=== PATIENT | male | born 1980 | race African-American/Black ===

== ENCOUNTER 2023-01-03 00:39 | Emergency (ER) | payer MEDICAID ==
[~2023-01-03] VITALS: Ht 177.8 cm; Wt 69.0 kg
[~2023-01-03 00:39] MED LIST: BICT1TAB PO
[2023-01-03 00:47] VITALS: BP 102/68; PULSE 79; RESP 16; TEMP 97.9; O2SAT 97
== END 2023-01-03 03:17 | disposition left against medical advice (07) ==
LOC: ER 00:39
DX: Z53.21 Procedure and treatment not carried out due to patient leaving prior to being seen by health care provider (principal)
CPT/HCPCS: 99281; Z7610

== ENCOUNTER 2023-01-03 19:08 | Inpatient (IN) | payer MEDICAID ==
[~2023-01-03] VITALS: Ht 170.7 cm; Wt 59.0 kg
[2023-01-03 19:18] VITALS: O2SAT 100
[2023-01-03] MEDS ORDERED: SODIUM CHLORIDE 0.9% 1,000 ML IV ONE (21:30)
[2023-01-03 21:44] LABS: CHLORIDE 105 mEq/L (98-107)
[2023-01-03 21:53] LABS: CREATINE KINASE 346 IU/L (39-308); ETHANOL BLOOD < 10 mg/dL (-10)
[2023-01-03 21:53] LABS: HEMATOCRIT. 26.7 % (42.0-52.0); HEMOGLOBIN. 8.7 g/dL (14.0-18.0); MEAN CORPUSCULAR HEMOGLOBIN 25.9 pg (28.0-32.0); MEAN CORPUSCULAR VOLUME 79.4 fL (80.0-94.0); MEAN PLATELET VOLUME 6.7 fl (7.4-10.4); PLATELET 500 x1000/uL (130-400); RED BLOOD CELL COUNT 3.36 mill/uL (4.7-6.1); RED CELL DISTRIBUTION WIDTH 16.5 % (11.6-14.6)
[2023-01-03 22:00] LABS: CARBAMAZEPINE < 0.5 ug/mL (4-12)
[2023-01-03 22:03] LABS: INR 1.1
[2023-01-03 22:52] LABS: PLATELET ESTIMATE INCREASED
[2023-01-03] MEDS ORDERED: PIPERACILLIN/TAZOBACTAM 3.375GM/50ML PREMIX IV ONE (23:00)
[2023-01-03] MEDS ORDERED: LEVETIRACETAM 500MG PREMIX 100 ML IV ONE (23:00)
[2023-01-03] MEDS ORDERED: VANCOMYCIN 1G PREMIX 200 ML IV SCH (23:00)
[2023-01-03] MEDS ORDERED: PIPERACILLIN/TAZ 3.375G PREMIX 50 ML IV NR (23:15)
[2023-01-04] VITALS (26 sets, daily range): BP systolic 79–130; BP diastolic 46–77; PULSE 85–115; RESP 13–128; TEMP 97.4–98.1
[2023-01-04 00:25] LABS: *AMPHETAMINES SCREEN URINE PRESUMTIVE POSITIVE (NEGATIVE); *BARBITURATES SCREEN URINE NEGATIVE (NEGATIVE); *BENZODIAZEPINES SCREEN URINE NEGATIVE (NEGATIVE); *COCAINE SCREEN URINE NEGATIVE (NEGATIVE); CANNABINOID URINE SCREEN PRESUMTIVE POSITIVE (NEGATIVE); METHADONE URINE SCREEN NEGATIVE (NEGATIVE); OPIATES URINE SCREEN NEGATIVE (NEGATIVE); PHENCYCLIDINE URINE SCREEN NEGATIVE (NEGATIVE)
[2023-01-04 00:31] LABS: CLARITY URINE TURBID (CLEAR); COLOR URINE DARK YELLOW (YELLOW); KETONES URINE 1+ (NEGATIVE); LEUKOCYTE ESTERASE URINE 3+ (NEGATIVE); NITRITE URINE NEGATIVE (NEGATIVE); OCCULT BLOOD URINE 3+ (NEGATIVE); PH URINE 5.5 (4.5-8.0); PROTEIN URINE 2+ (NEGATIVE); SPECIFIC GRAVITY URINE 1.019 (1.005-1.030)
[2023-01-04] MEDS ORDERED: SODIUM CHLORIDE 0.9% 1,000 ML IV ONE (03:15)
[2023-01-04] MEDS ORDERED: LORAZEPAM 2MG/ML CPJ IV ONE ×2 (03:30)
[2023-01-04] MEDS ORDERED: IOHEXOL-350 100 ML BOTTLE ONE (04:33)
[2023-01-04] MEDS ORDERED: ONDANSETRON HCL 4MG/2ML INJ IV PRN (09:00)
[2023-01-04] MEDS ORDERED: IPRATROPIUM/ALBUTEROL 0.5-3(2.5)MG/3ML NEB HHN PRN (09:00)
[2023-01-04] MEDS ORDERED: CEFTRIAXONE 1GM PREMIX 50 ML IV SCH (09:00)
[2023-01-04] MEDS ORDERED: ACETAMINOPHEN 325MG TABLET PO PRN ×2 (09:00)
[2023-01-04] MEDS ORDERED: DOCUSATE SODIUM 100MG CAPSULE PO PRN (09:00)
[2023-01-04] MEDS ORDERED: CLONIDINE 0.1MG TABLET PO PRN (09:00)
[2023-01-04] MEDS ORDERED: SODIUM BICARBONATE 8.4% 1 MEQ/ML 50ML SYR IV NR (10:15)
[2023-01-04] MEDS: LEVETIRACETAM 500MG PREMIX 100 ML IV SCH ×2 (10:23→22:26)
[2023-01-04] MEDS: CEFTRIAXONE 1,000 MG in DEXTROSE 5% WATER 50 ML IV SCH (10:23)
[2023-01-04 11:14] LABS: BG BASE EXCESS -2.5 mmol/L (-2.0-2.0); BG CARBOXYHEMOGLOBIN 0.3 % (0.5-1.5); BG METHEMOGLOBIN 1.1 % (0.0-1.5); BG OXYGEN SATURATION 95.9 % (92.0-98.5); BG OXYHEMOGLOBIN 94.6 % (94.0-97.0); BG PCO2 31.2 mmHg (35.0-45.0); BG PH 7.446 (7.350-7.450); BG PO2 88.4 mmHg (75.0-100.0); BG SAMPLE SITE RIGHT RADIAL; BG TOTAL HEMOGLOBIN 8.7 g/dL (12.0-18.0); BG VENT MODE ROOM AIR
[2023-01-04] MEDS: SODIUM BICARBONATE 100 MEQ in DEXTROSE 5% WATER 1,000 ML IV SCH (11:19)
[2023-01-04 12:13] LABS: BASOPHILS % 0.1 % (0.0-2.0); HEMATOCRIT. 24.5 % (42.0-52.0); LYMPHOCYTES % 7.5 % (20.0-50.0); MEAN CORPUSCULAR HEMOGLOBIN 25.8 pg (28.0-32.0); MEAN CORPUSCULAR VOLUME 78.9 fL (80.0-94.0); MEAN PLATELET VOLUME 6.6 fl (7.4-10.4); MONOCYTES % 5.6 % (2.0-8.0); NEUTROPHILS % 86.8 % (40.0-76.0); PLATELET 500 x1000/uL (130-400); RED CELL DISTRIBUTION WIDTH 16.7 % (11.6-14.6)
[2023-01-04 12:53] LABS: HEPATITIS B SURFACE ANTIGEN NEGATIVE
[2023-01-05] VITALS (14 sets, daily range): BP systolic 93–119; BP diastolic 44–74; PULSE 77–108; RESP 18–26; TEMP 97.6–97.9
[2023-01-05] MEDS: SODIUM BICARBONATE 100 MEQ in DEXTROSE 5% WATER 1,000 ML IV SCH (02:02)
[2023-01-05 05:07] LABS: BASOPHILS % 0.1 % (0.0-2.0); HEMATOCRIT. 24.7 % (42.0-52.0); HEMOGLOBIN. 8.4 g/dL (14.0-18.0); MEAN CORPUSCULAR HEMOGLOBIN 26.6 pg (28.0-32.0); MEAN CORPUSCULAR VOLUME 78.5 fL (80.0-94.0); MEAN PLATELET VOLUME 6.9 fl (7.4-10.4); MONOCYTES % 8.8 % (2.0-8.0); NEUTROPHILS % 80.1 % (40.0-76.0); PLATELET 462 x1000/uL (130-400); RED BLOOD CELL COUNT 3.14 mill/uL (4.7-6.1); RED CELL DISTRIBUTION WIDTH 16.9 % (11.6-14.6)
[2023-01-05 06:18] LABS: CHLORIDE 107 mEq/L (98-107)
[2023-01-05] MEDS: SODIUM CHLORIDE 0.9% 1,000 ML IV SCH ×2 (07:47→21:24)
[2023-01-05 09:10] LABS: ABSOLUTE MONOCYTES 0.7 x10E3/uL (0.1-0.9); ABSOLUTE NEUTROPHILS 11.7 x10E3/uL (1.4-7.0); BASOPHILS 0 % (Not Estab.); HEMATOCRIT 24.7 % (37.5-51.0); HEMOGLOBIN 8.1 g/dL (13.0-17.7); IMMATURE GRANULOCYTES 1 % (Not Estab.); IMMATURE GRANULOCYTES ABSOLUTE 0.1 x10E3/uL (0.0-0.1); LYMPHOCYTES 7 % (Not Estab.); MEAN CORPUSCULAR HEMOGLOBIN 25.4 pg (26.6-33.0); MEAN CORPUSCULAR HGB CONC. 32.8 g/dL (31.5-35.7); MEAN CORPUSCULAR VOLUME 77 fL (79-97); MONOCYTES 6 % (Not Estab.); NEUTROPHILS 86 % (Not Estab.); PLATELETS 472 x10E3/uL (150-450); RBC 3.19 x10E6/uL (4.14-5.80); RED CELL DISTRIBUTION WIDTH 14.7 % (11.6-15.4); WBC 13.6 x10E3/uL (3.4-10.8)
[2023-01-05] MEDS: LEVETIRACETAM 500MG PREMIX 100 ML IV SCH ×2 (09:15→21:24)
[2023-01-05] MEDS: VANCOMYCIN 1000MG/20ML ORAL SOLN PO SCH ×3 (09:15→18:00)
[2023-01-05] MEDS: VANCOMYCIN 1G PREMIX 200 ML IV SCH (10:44)
[2023-01-05] MEDS: CEFTRIAXONE 1,000 MG in DEXTROSE 5% WATER 50 ML IV SCH (10:44)
[2023-01-05 13:06] LABS: % CD 3 POS. LYMPHOCYTES 85.5 % (57.5-86.2); % CD 4 POS. LYMPHOCYTES 1.6 % (30.8-58.5); % CD 8 POS. LYMPH 83.2 % (12.0-35.5); ABSOLUTE CD 3 855 /uL (622-2402); ABSOLUTE CD 4 HELPER 16 /uL (359-1519); ABSOLUTE CD 8 SUPPRESSOR 832 /uL (109-897); CD4/CD8 RATIO 0.02 (0.92-3.72)
[2023-01-05 14:09] LABS: ANTI-NUCLEAR ANTIBODIES DIRECT Negative (Negative)
[2023-01-06 00:38] VITALS: PULSE 72; RESP 19; TEMP 97.6
[2023-01-06] MEDS: VANCOMYCIN 1000MG/20ML ORAL SOLN PO SCH ×4 (06:25→17:39)
[2023-01-06 08:00] VITALS: BP 101/66; PULSE 82; RESP 18; TEMP 96.9
[2023-01-06] MEDS ORDERED: LORAZEPAM 2MG/ML CPJ IV PRN (08:15)
[2023-01-06] MEDS ORDERED: AZITHROMYCIN 600 MG TABLET PO SCH (09:00)
[2023-01-06] MEDS: CEFTRIAXONE 1,000 MG in DEXTROSE 5% WATER 50 ML IV SCH (09:32)
[2023-01-06] MEDS: LEVETIRACETAM 500MG PREMIX 100 ML IV SCH ×2 (09:33→21:21)
[2023-01-06] MEDS: SULFAMETHOXAZOLE/TRIMETHOPRIM 400/80MG TAB PO SCH (09:33)
[2023-01-06] MEDS: VANCOMYCIN 1G PREMIX 200 ML IV SCH (10:01)
[2023-01-06] MEDS: SODIUM CHLORIDE 0.9% 1,000 ML IV SCH ×2 (10:01→21:21)
[2023-01-06 11:00] LABS: BASOPHILS % 0.2 % (0.0-2.0); EOSINOPHILS % 0.8 % (0.0-5.0); HEMATOCRIT. 24.1 % (42.0-52.0); HEMOGLOBIN. 8.1 g/dL (14.0-18.0); LYMPHOCYTES % 20.1 % (20.0-50.0); MEAN CORPUSCULAR HEMOGLOBIN 26.5 pg (28.0-32.0); MEAN CORPUSCULAR VOLUME 78.6 fL (80.0-94.0); MEAN PLATELET VOLUME 6.9 fl (7.4-10.4); MONOCYTES % 8.2 % (2.0-8.0); NEUTROPHILS % 70.7 % (40.0-76.0); PLATELET 434 x1000/uL (130-400); RED BLOOD CELL COUNT 3.07 mill/uL (4.7-6.1); RED CELL DISTRIBUTION WIDTH 16.7 % (11.6-14.6)
[2023-01-06 11:08] LABS: CHLORIDE 106 mEq/L (98-107)
[2023-01-06 11:20] LABS: PHOSPHORUS 2.3 mg/dL (2.5-4.9)
[2023-01-06 12:00] VITALS: BP 110/74; PULSE 77; RESP 18; TEMP 97
[2023-01-06] MEDS ORDERED: VANCOMYCIN 500MG PREMIX 100 ML IV SCH ×2 (14:30→21:00)
[2023-01-06 16:00] VITALS: BP 116/82; PULSE 79; RESP 18; TEMP 97.7
[2023-01-06 20:00] VITALS: BP 120/84; PULSE 61; RESP 20; TEMP 98.1
[2023-01-07] VITALS: BP 113/80; PULSE 65; RESP 19; TEMP 97.2
[2023-01-07] MEDS: VANCOMYCIN 1000MG/20ML ORAL SOLN PO SCH ×4 (00:12→18:11)
[2023-01-07 04:00] VITALS: BP 130/76; PULSE 70; RESP 19; TEMP 97.7
[2023-01-07 05:51] LABS: BASOPHILS % 0.2 % (0.0-2.0); EOSINOPHILS % 1.2 % (0.0-5.0); HEMATOCRIT. 23.8 % (42.0-52.0); HEMOGLOBIN. 7.7 g/dL (14.0-18.0); LYMPHOCYTES % 25.1 % (20.0-50.0); MEAN CORPUSCULAR HEMOGLOBIN 25.5 pg (28.0-32.0); MEAN CORPUSCULAR VOLUME 78.5 fL (80.0-94.0); MEAN PLATELET VOLUME 6.8 fl (7.4-10.4); MONOCYTES % 10.3 % (2.0-8.0); NEUTROPHILS % 63.2 % (40.0-76.0); PLATELET 468 x1000/uL (130-400); RED BLOOD CELL COUNT 3.03 mill/uL (4.7-6.1); RED CELL DISTRIBUTION WIDTH 16.6 % (11.6-14.6)
[2023-01-07 06:01] LABS: CHLORIDE 107 mEq/L (98-107)
[2023-01-07 08:00] VITALS: BP 131/88; PULSE 55; RESP 19; TEMP 97.6
[2023-01-07] MEDS: SULFAMETHOXAZOLE/TRIMETHOPRIM 400/80MG TAB PO SCH (09:00)
[2023-01-07] MEDS: LEVETIRACETAM 500MG PREMIX 100 ML IV SCH ×2 (09:00→22:32)
[2023-01-07] MEDS: CEFTRIAXONE 1,000 MG in DEXTROSE 5% WATER 50 ML IV SCH (09:00)
[2023-01-07 12:00] VITALS: BP 113/75; PULSE 69; RESP 20; TEMP 97.8
[2023-01-07] MEDS: SODIUM CHLORIDE 0.9% 1,000 ML IV SCH (12:54)
[2023-01-07 14:08] LABS: *HIV-1 RNA BY PCR 99420 copies/mL (.)
[2023-01-07 16:00] VITALS: BP 106/74; PULSE 77; RESP 17; TEMP 96.1
[2023-01-07 20:00] VITALS: BP 101/77; PULSE 69; RESP 20; TEMP 98.6
[2023-01-08] VITALS: BP 117/81; PULSE 62; RESP 20; TEMP 96.5
[2023-01-08] MEDS: VANCOMYCIN 1000MG/20ML ORAL SOLN PO SCH ×4 (06:00→18:21)
[2023-01-08] MEDS: LEVETIRACETAM 500MG PREMIX 100 ML IV SCH ×2 (08:27→21:00)
[2023-01-08] MEDS: CEFTRIAXONE 1,000 MG in DEXTROSE 5% WATER 50 ML IV SCH (10:00)
[2023-01-08 12:00] VITALS: BP 111/74; PULSE 62; RESP 17; TEMP 97.8
[2023-01-08 13:12] LABS: PHOSPHORUS 2.2 mg/dL (2.5-4.9)
[2023-01-08] MEDS: SODIUM CHLORIDE 0.9% 1,000 ML IV SCH (13:49)
[2023-01-08] MEDS: SULFAMETHOXAZOLE/TRIMETHOPRIM 400/80MG TAB PO SCH (13:50)
[2023-01-08 16:00] VITALS: BP 127/86; PULSE 70; RESP 18; TEMP 97.1
[2023-01-08] MEDS ORDERED: MAGNESIUM 1 G PREMIX 100 ML IV NR (16:30)
[2023-01-08] MEDS ORDERED: SODIUM PHOS,M-BASIC-D-BASIC 15 MM in DEXT 5% WATER 245 ML IV NR (16:30)
[2023-01-09 04:00] VITALS: BP 112/71; PULSE 62; RESP 18; TEMP 97.7
[2023-01-09] MEDS: SODIUM CHLORIDE 0.9% 1,000 ML IV SCH ×2 (04:20→18:26)
[2023-01-09] MEDS: VANCOMYCIN 1000MG/20ML ORAL SOLN PO SCH ×6 (05:52→23:35)
[2023-01-09 07:14] LABS: MEAN CORPUSCULAR HEMOGLOBIN 25.7 pg (28.0-32.0); MEAN CORPUSCULAR VOLUME 78.8 fL (80.0-94.0); MEAN PLATELET VOLUME 6.6 fl (7.4-10.4); PLATELET 526 x1000/uL (130-400); RED BLOOD CELL COUNT 3.49 mill/uL (4.7-6.1); RED CELL DISTRIBUTION WIDTH 17.2 % (11.6-14.6)
[2023-01-09 07:27] LABS: HEMATOCRIT. 27.5 % (42.0-52.0)
[2023-01-09 07:29] LABS: CHLORIDE 107 mEq/L (98-107)
[2023-01-09 07:46] LABS: PHOSPHORUS 3.5 mg/dL (2.5-4.9)
[2023-01-09 08:00] VITALS: BP 114/85; PULSE 93; RESP 20; TEMP 97.5
[2023-01-09] MEDS: SULFAMETHOXAZOLE/TRIMETHOPRIM 400/80MG TAB PO SCH (09:00)
[2023-01-09] MEDS: LEVETIRACETAM 500MG PREMIX 100 ML IV SCH ×2 (09:00→20:32)
[2023-01-09] MEDS: CEFTRIAXONE 1,000 MG in DEXTROSE 5% WATER 50 ML IV SCH (10:00)
[2023-01-09] MEDS ORDERED: MAGNESIUM 2 G PREMIX 50 ML IV NR (11:00)
[2023-01-09 11:15] LABS: PLATELET ESTIMATE INCREASED
[2023-01-09 12:00] VITALS: BP 119/78; PULSE 89; RESP 20; TEMP 97.4
[2023-01-09 16:00] VITALS: BP 103/67; PULSE 79; RESP 20; TEMP 97.5
[2023-01-09 20:00] VITALS: BP 111/82; PULSE 80; RESP 16; TEMP 93
[2023-01-10] VITALS: BP 144/82; PULSE 75; RESP 19; TEMP 96.4
[2023-01-10 04:00] VITALS: BP 98/70; PULSE 76; RESP 19; TEMP 92.7
[2023-01-10] MEDS: SODIUM CHLORIDE 0.9% 1,000 ML IV SCH ×2 (05:50→06:00)
[2023-01-10] MEDS: VANCOMYCIN 1000MG/20ML ORAL SOLN PO SCH (06:00)
[2023-01-10 08:00] VITALS: BP 124/79; PULSE 62; RESP 20; TEMP 96.5
[2023-01-10] MEDS ORDERED: MAGNESIUM 2 G PREMIX 50 ML IV ONE (09:00)
[2023-01-10] MEDS: SULFAMETHOXAZOLE/TRIMETHOPRIM 400/80MG TAB PO SCH (09:04)
[2023-01-10] MEDS: LEVETIRACETAM 500MG PREMIX 100 ML IV SCH ×2 (09:10→23:04)
[2023-01-10 09:39] LABS: CHLORIDE 108 mEq/L (98-107)
[2023-01-10 09:44] LABS: PHOSPHORUS 2.4 mg/dL (2.5-4.9)
[2023-01-10 09:59] LABS: HEMATOCRIT. 27.3 % (42.0-52.0); MEAN CORPUSCULAR HEMOGLOBIN 26.6 pg (28.0-32.0); MEAN CORPUSCULAR VOLUME 80.3 fL (80.0-94.0); MEAN PLATELET VOLUME 6.9 fl (7.4-10.4); PLATELET 528 x1000/uL (130-400); RED CELL DISTRIBUTION WIDTH 16.4 % (11.6-14.6)
[2023-01-10 12:00] VITALS: BP 121/89; PULSE 67; RESP 19; TEMP 97.3
[2023-01-10 16:00] VITALS: BP 117/80; PULSE 77; RESP 19; TEMP 95.9
[2023-01-10 20:00] VITALS: BP 115/81; PULSE 75; RESP 20; TEMP 98.2
[2023-01-10 20:19] LABS: PLATELET ESTIMATE INCREASED
[2023-01-11 08:00] VITALS: BP 140/86; PULSE 90; RESP 20; TEMP 97
[2023-01-11] MEDS: SULFAMETHOXAZOLE/TRIMETHOPRIM 400/80MG TAB PO SCH (09:49)
[2023-01-11] MEDS: LEVETIRACETAM 500MG PREMIX 100 ML IV SCH ×3 (09:49→21:00)
[2023-01-11] MEDS: SODIUM CHLORIDE 0.9% 1,000 ML IV SCH (09:51)
[2023-01-11 10:35] LABS: HEMATOCRIT. 26.6 % (42.0-52.0); HEMOGLOBIN. 8.7 g/dL (14.0-18.0); MEAN CORPUSCULAR VOLUME 79.4 fL (80.0-94.0); MEAN PLATELET VOLUME 6.7 fl (7.4-10.4); PLATELET 492 x1000/uL (130-400); RED BLOOD CELL COUNT 3.35 mill/uL (4.7-6.1); RED CELL DISTRIBUTION WIDTH 16.6 % (11.6-14.6)
[2023-01-11 10:51] LABS: CHLORIDE 111 mEq/L (98-107)
[2023-01-11 10:56] LABS: PHOSPHORUS 1.9 mg/dL (2.5-4.9)
[2023-01-11 12:00] VITALS: BP 111/82; PULSE 78; RESP 20; TEMP 97
[2023-01-11 12:05] LABS: PLATELET ESTIMATE SLIGHTLY INCREASED
[2023-01-11 16:00] VITALS: BP 109/61; PULSE 73; RESP 18; TEMP 98.3
[2023-01-11 19:08] LABS: OVA & PARASITE EXAM Final report (.)
[2023-01-11] MEDS: LEVETIRACETAM 500MG/5ML CUP PO SCH (22:14)
[2023-01-12 08:00] VITALS: BP 105/75; PULSE 69; RESP 20; TEMP 97.1
[2023-01-12] MEDS: LEVETIRACETAM 500MG/5ML CUP PO SCH ×2 (09:11→21:46)
[2023-01-12] MEDS: MAGNESIUM GLUCONATE 500MG TABLET PO SCH (09:25)
[2023-01-12 12:00] VITALS: BP 117/87; PULSE 72; RESP 21; TEMP 97.2
[2023-01-12 16:00] VITALS: BP 118/92; PULSE 74; RESP 20; TEMP 97.1
[2023-01-12] MEDS: POTASSIUM-SODIUM PHOSPHATE POWDER PACKET PO SCH (18:44)
[2023-01-12 20:00] VITALS: BP 121/79; PULSE 78; RESP 18; TEMP 98.1
[2023-01-13] MEDS: LEVETIRACETAM 500MG/5ML CUP PO SCH (10:05)
[2023-01-13] MEDS: MAGNESIUM GLUCONATE 500MG TABLET PO SCH (10:06)
[2023-01-13] MEDS: POTASSIUM-SODIUM PHOSPHATE POWDER PACKET PO SCH (10:06)
[2023-01-13] MEDS ORDERED: MAG500 PO (10:43)
[2023-01-13] MEDS ORDERED: KEPP500 MT (10:43)
[2023-01-13] MEDS ORDERED: NAPH1POW3 PO ×3 (10:43→13:16)
[2023-01-13] MEDS ORDERED: BICT1TAB PO ×3 (11:39→13:16)
== END 2023-01-13 13:41 | disposition home or self-care (01) | DRG 890 ==
LOC: ER 19:08 → MICUSO 01-04 00:32 → EDBEDREQSVC 01-04 03:06 → ENRESERV 01-04 05:29 → MICUSO 01-04 16:39 → 7WST 01-05 12:07 → 6EST 01-07 13:53
PROVIDERS: ADMIT Family Medicine Adult Medicine; ATTEND Family Medicine Adult Medicine
PROC: 4A00X4Z Measurement of Central Nervous Electrical Activity, External Approach (ICD-10-PCS; principal; 2023-01-06)
DX: A41.51 Sepsis due to Escherichia coli [E. coli] (principal); B20 Human immunodeficiency virus [HIV] disease; G93.40 Encephalopathy, unspecified; I60.9 Nontraumatic subarachnoid hemorrhage, unspecified; N17.0 Acute kidney failure with tubular necrosis; E44.0 Moderate protein-calorie malnutrition; I95.9 Hypotension, unspecified; D50.9 Iron deficiency anemia, unspecified; F19.10 Other psychoactive substance abuse, uncomplicated; G40.909 Epilepsy, unspecified, not intractable, without status epilepticus; E87.20 Acidosis, unspecified; M62.82 Rhabdomyolysis; N39.0 Urinary tract infection, site not specified; G89.29 Other chronic pain; E86.0 Dehydration; B96.89 Other specified bacterial agents as the cause of diseases classified elsewhere; Z20.822 Contact with and (suspected) exposure to COVID-19; Z91.148 Patient's other noncompliance with medication regimen for other reason; Z68.20 Body mass index [BMI] 20.0-20.9, adult
CPT/HCPCS: 36415; 36600; 70496; 70498; 70551; 71045; 76770; 80048; 80053; 80156; 80165; 80185; 80202; 80305; 80307; 80320; 80329; 81003; 82375; 82550; 82805; 82962; 83605; 83735; 84100; 84145; 84484; 85025; 86038; 86160; 86359; 86360; 86705; 86709; 86803; 87015; 87045; 87177; 87186; 87209; 87340; 87426; 87427; 87449; 87493; 87536; 89055; 93005; 97116; 97162; 97166; 97530; 99285; A6261; C9803; J0696; J1953; J2060; J2405; J2543; J3370; J3475; J3490; J7030; J7060; J7070; Q9967; G0480